=== PATIENT | male | born 1985 | race Caucasian/White ===

== ENCOUNTER 2016-09-10 13:37 | Emergency (ER) | payer OTHER ==
[2016-09-10 13:44] VITALS: RESP 18; O2SAT 99; BMI 21.5
[2016-09-10 14:23] VITALS: TEMP 97.9
--- NOTE | 2016-09-10 14:37 | ED PDOC ---
Arrival/HPI - General Time Seen by Provider: 09/10/16 13:45 Historian: Patient - History of Present Illness Narrative History of Present Illness (Text): 09/10/16 14:24 Reymundo Mayorga is a 30 year old male who presents to the emergency department complaining progressive bilateral numbness (left greater than right) with associated headache for about a week. At different times, patient experiences abnormal correctional agency director, vision change, and mild headache. Patient states that he saw a neurologist, Dr. Dong, a few days ago and received a Brain MRI which had normal results. Patient also states that he experienced chest pain a few days ago and went to [place] for an evaluation. His paper work from [facility] shows unremarkable blood work. He also says he was diagnosed with mono several weeks ago. Patient denies any fever, chills, or any other complaint at this time. Patient notes that he traveled to [place] [facility] 3 weeks ago. He has also had diarrhea for several weeks, starting prior to going [place]. Time/Duration: 1 week Symptom Onset: Gradual Symptom Course: Unchanged Activities at Onset: Rest Context: Home Past Medical History - Provider Review Nursing Documentation Reviewed: Yes - Travel History Have you recently traveled outside [place] w/in the past 3 mons?: Yes If Yes, travel location?: [facility] - Infectious Disease Hx of Infectious Diseases: None - Genitourinary/Gynecological Other/Comment: mono - Psychiatric Hx Substance Use: No - Anesthesia Hx Anesthesia: No Hx Anesthesia Reactions: No Hx Malignant Hyperthermia: No Family/Social History - Physician Review Nursing Documentation Reviewed: Yes Family/Social History: No Known Family HX Smoking Status: Never Smoked Hx Alcohol Use: No Hx Substance Use: No Allergies/Home Meds Allergies/Adverse Reactions: Allergies No Known Allergies Allergy (Unverified 09/10/16 14:24) Home Medications: Home Meds Medication Instructions Recorded Confirmed Acyclovir [Zovirax] 800 mg PO TID 09/10/16 09/10/16 Review of Systems - Physician Review All systems were reviewed & negative as marked: Yes - Review of Systems Constitutional: Other (Progressive bilateral numbness (left worse than right)) Eyes: Vision Changes ENT: absent: Hearing Changes Respiratory: absent: SOB Cardiovascular: absent: Chest Pain Gastrointestinal: absent: Abdominal Pain Genitourinary Male: absent: Dysuria, Urinary Output Changes Musculoskeletal: absent: Arthralgias Skin: absent: Rash Neurological: Headache Endocrine: absent: Diaphoresis Hemo/Lymphatic: absent: Adenopathy Psychiatric: absent: Anxiety Physical Exam Vital Signs Reviewed: Yes Vital Signs Temp Pulse Resp BP Pulse Ox 09/10/16 17:24 64 18 121/63 99 09/10/16 16:15 66 18 122/65 99 09/10/16 15:23 69 18 124/69 99 09/10/16 14:23 97.9 F 75 18 126/72 99 09/10/16 13:43 98.2 F 80 18 105/78 99 Temperature: Afebrile Blood Pressure: Normal Pulse: Regular Respiratory Rate: Normal Appearance: Positive for: Well-Appearing, Non-Toxic, Comfortable Pain Distress: None Mental Status: Positive for: Alert and Oriented X 3 - Systems Exam Head: Present: Atraumatic, Normocephalic Pupils: Present: PERRL Extroacular Muscles: Present: EOMI Conjunctiva: Present: Normal Mouth: Present: Moist Mucous Membranes Pharnyx: Present: Normal. No: ERYTHEMA, EXUDATE Neck: Present: Normal Range of Motion Respiratory/Chest: Present: Clear to Auscultation, Good Air Exchange. No: Respiratory Distress, Accessory Muscle Use Cardiovascular: Present: Regular Rate and Rhythm, Normal S1, S2. No: Murmurs Abdomen: Present: Normal Bowel Sounds. No: Tenderness, Distention, Peritoneal Signs Back: Present: Normal Inspection Upper Extremity: Present: Normal Inspection. No: Cyanosis, Edema Lower Extremity: Present: Normal Inspection. No: Edema Neurological: Present: GCS=15, CN II-XII Intact, Speech Normal Skin: Present: Warm, Dry, Normal Color. No: Rashes Psychiatric: Present: Alert, Oriented x 3, Normal Insight, Normal Concentration Medical Decision Making ED Course and Treatment: 09/10/16 14:24 Impression: 30 year old male complaining of progressive bilateral numbness (left greater than right) with associated headache for about a week. Differential Diagnosis included but are not limited to: MS vs GBS vs CVA Plan: -- EKG -- Chest X-ray -- Brain CT w/o contrast -- Labs -- Reassess and disposition Progress Notes: 09/10/16 14:30 EKG: NSR @ 75 with inverted T waves in I, avL with normal intervals, left post fascicular block. Case discussed with Dr. Dong, who said that patient had a negative Brain MRI and normal nerve conductions studies and normal EMGs done. Patient does not require any additional neurological workup. 09/10/16 17:33 Labs are unremarkable and CT brain is negative. 09/10/16 18:08 Patient with no acute findings here with normal exam. He already had the negative studies outpatient, so unlikely to be GBS. Given negative workup, will have patient follow up outpatient with neurology. Also to consider will be to stop acyclovir, which he has been taking for mono. - Lab Interpretations Lab Results: 09/10/16 14:30 09/10/16 14:30 Lab Results 09/10/16 14:30: Sodium 140, Potassium 4.5, Chloride 100, Carbon Dioxide 29, Anion Gap 16, BUN 10, Creatinine 0.8, Est GFR ( Amer) > 60, Est GFR (Non- Af Amer) > 60, Random Glucose 81, Calcium 9.9, Magnesium 2.2, Total Bilirubin 0.4, AST 20, ALT 31, Alkaline Phosphatase 48, Lactate Dehydrogenase 372, Total Creatine Kinase 80, Troponin I < 0.01, Total Protein 7.5, Albumin 4.6, Globulin 3.0, Albumin/Globulin Ratio 1.5 09/10/16 14:30: WBC 7.4, RBC 5.09, Hgb 15.4, Hct 43.6, MCV 85.7, MCH 30.3, MCHC 35.3, RDW 12.6, Plt Count 231, MPV 10.2, Gran % 51.0, Lymph % (Auto) 34.7, [place] % (Auto) 10.7 H, Eos % (Auto) 3.3, Baso % (Auto) 0.3, Gran # 3.77, Lymph # 2.6, [place] # 0.8 H, Eos # 0.2, Baso # 0.02 - RAD Interpretation Radiology Orders: 09/10/16 14:28 Brain [HEAD W/O CONTRAST] [CT] Stat - Scribe Statement The provider has reviewed the documentation as recorded by the Xochitlibalicia Chan Provider Scribe Attestation: All medical record entries made by the Scribe were at my direction and personally dictated by me. I have reviewed the chart and agree that the record accurately reflects my personal performance of the history, physical exam, medical decision making, and the department course for this patient. I have also personally directed, reviewed, and agree with the discharge instructions and disposition. Disposition/Present on Arrival - Present on Arrival Any Indicators Present on Arrival: No History of DVT/PE: No History of Uncontrolled Diabetes: No Urinary Catheter: No History of Decub. Ulcer: No History Surgical Site Infection Following: None - Disposition Have Diagnosis and Disposition been Completed?: Yes Diagnosis: Paresthesia Disposition: HOME/ ROUTINE Disposition Time: 18:10 Patient Plan: Discharge Condition: GOOD Additional Instructions: Follow up with Dr. Dong. Recommending stopping acyclovir at this time. Follow up with gastroenterology. You may use imodium AD for diarrhea. Return to the emergency department if any new concerning symptoms. Referrals: Alfonso Yo DO [Primary Care Provider] - Follow up with primary Last Dong MD [Staff Provider] - Follow up with primary
[2016-09-10 14:44] LABS: BASO # 0.02 K/mm3 (0.0-2.0); BASO % 0.3 % (0.0-3.0); EOS # 0.2 (0.0-0.7); EOS % 3.3 % (1.5-5.0); GRAN # 3.77 (1.4-6.5); HEMOGLOBIN 15.4 gm/dL (14.0-18.0); LYMPH # 2.6 (1.2-3.4); LYMPH % 34.7 % (22.0-35.0); MEAN CELL VOLUME 85.7 fL (80.0-105.0); MEAN CORPUSCULAR HEMOGLOBIN 30.3 pg (25.0-35.0); MEAN CORPUSCULAR HGB CONC 35.3 g/dl (31.0-37.0); MEAN PLATELET VOLUME 10.2 fl (7.0-11.0); MONO # 0.8 (0.1-0.6); MONO % 10.7 % (1.0-6.0); PLATELET COUNT 231 10^3/uL (120.0-450.0); RBC 5.09 10^6/uL (3.5-6.1); RED CELL DISTRIBUTION WIDTH 12.6 % (11.5-14.5); WHITE BLOOD COUNT 7.4 10^3/ul (4.5-11.0)
[2016-09-10 15:00] LABS: ALB/GLOB RATIO 1.5 (1.1-1.8); ALBUMIN 4.6 g/dL (3.0-4.8); ALT/SGPT 31 U/L (7-56); AST/SGOT 20 U/L (15-59); BLOOD UREA NITROGEN 10 mg/dL (7-21); CALCIUM 9.9 mg/dL (8.4-10.5); GFR AFRICAN-AMERICAN > 60; GFR NON-AFRICAN AMERICAN > 60; MAGNESIUM 2.2 mg/dL (1.7-2.2)
[2016-09-10 15:12] LABS: TROPONIN I < 0.01 ng/mL
--- NOTE | 2016-09-10 15:47 | CT ---
PROCEDURE: CT HEAD WITHOUT CONTRAST. HISTORY: L side numbness L > R COMPARISON: None available. TECHNIQUE: Axial computed tomography images were obtained through the head/brain without intravenous contrast. Radiation dose: Total exam DLP = 757 mGy-cm. This CT exam was performed using one or more of the following dose reduction techniques: Automated exposure control, adjustment of the mA and/or kV according to patient size, and/or use of iterative reconstruction technique. FINDINGS: HEMORRHAGE: No intracranial hemorrhage. BRAIN: No mass effect or edema. No atrophy or chronic microvascular ischemic changes. VENTRICLES: Unremarkable. No hydrocephalus. CALVARIUM: Unremarkable. PARANASAL SINUSES: Unremarkable as visualized. No significant inflammatory changes. MASTOID AIR CELLS: Unremarkable as visualized. No inflammatory changes. OTHER FINDINGS: None. IMPRESSION: No acute findings
[2016-09-10 17:25] VITALS: BP 121/63; PULSE 64
--- NOTE | 2016-09-10 20:49 | CARD ---
APPROVED REPORT EKG Measurement Heart [id number] MA 156P [id number] <Conclusion> Normal sinus rhythm Left posterior fascicular block vs reversed limb leads Abnormal ECG
== END 2016-09-10 18:26 | disposition home or self-care (01) ==
LOC: ED 13:37 → MERGE 13:37 → ED 18:26
DX: R20.9 Unspecified disturbances of skin sensation (principal)

== ENCOUNTER 2016-09-12 16:57 | Emergency (ER) | payer OTHER ==
[2016-09-12 17:06] VITALS: BP 117/76; PULSE 90; RESP 20; TEMP 99; O2SAT 97; BMI 24.0
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
== END 2016-09-12 18:15 | disposition home or self-care (01) ==
LOC: ED 16:57
DX: R20.9 Unspecified disturbances of skin sensation (principal)

== ENCOUNTER 2016-09-12 19:23 | Emergency (ER) | payer OTHER ==
[2016-09-12 19:36] VITALS: BMI 24.3
[2016-09-12 19:42] VITALS: RESP 18; TEMP 98
--- NOTE | 2016-09-12 19:48 | ED PDOC ---
Arrival/HPI <Nicolás Weinstein - Last Filed: 09/12/16 20:19> - General Historian: Patient <Oswaldo Barreto - Last Filed: 09/12/16 22:01> - General Chief Complaint: Medical Clearance Time Seen by Provider: 09/12/16 19:34 - History of Present Illness Narrative History of Present Illness (Text): 09/12/16 19:41 30 y/o male, pmh including parasthesia, nkda, c/o epigastric pain and rt. calf pain x 3 weeks. Epigastric pain on and off, making him feels anxious on and off , also started to have the rt. calf pain, no chest pain or shortness of breath, no palpitation, no night sweat, no other medical or psychological complaints. ( Oswaldo Barreto) Past Medical History - Provider Review Nursing Documentation Reviewed: Yes - Infectious Disease Hx of Infectious Diseases: None - Cardiac Hx Hypertension: No - Pulmonary Hx Tuberculosis: No - Neurological Hx Seizures: No - Endocrine/Metabolic Other/Comment: pt. states weight loss unknown cause - Hematological/Oncological Hx Cancer: No - Integumentary Hx Dermatological Disorder: Yes Other/Comment: big toe, small cuts pt. states not healing - Genitourinary/Gynecological Other/Comment: flank pain bilateral - Psychiatric Hx Psychophysiologic Disorder: No Hx Substance Use: No - Anesthesia Hx Anesthesia: No Hx Anesthesia Reactions: No Hx Malignant Hyperthermia: No <Oswaldo Barreto - Last Filed: 09/12/16 22:01> Family/Social History - Physician Review Nursing Documentation Reviewed: Yes Family/Social History: Unknown Family HX Smoking Status: Never Smoked Hx Alcohol Use: No Hx Substance Use: No <Oswaldo Barreto - Last Filed: 09/12/16 22:01> Allergies/Home Meds <Nicolás Weinstein - Last Filed: 09/12/16 20:19> <Oswaldo Barreto - Last Filed: 09/12/16 22:01> Allergies/Adverse Reactions: Allergies No Known Allergies Allergy (Verified 09/12/16 17:06) Review of Systems - Review of Systems Constitutional: absent: Fatigue, Fevers Eyes: absent: Vision Changes ENT: absent: Hearing Changes Respiratory: absent: SOB, Cough Cardiovascular: absent: Chest Pain Gastrointestinal: Abdominal Pain. absent: Diarrhea, Nausea, Vomiting Musculoskeletal: Arthralgias, Myalgias. absent: Back Pain, Neck Pain, Joint Swelling Skin: absent: Rash, Pruritis, Skin Lesions <Oswaldo Barreto - Last Filed: 09/12/16 22:01> Physical Exam Vital Signs Reviewed: Yes Temperature: Afebrile Blood Pressure: Normal Pulse: Regular Respiratory Rate: Normal Appearance: Positive for: Well-Appearing, Non-Toxic, Comfortable Pain Distress: Mild Mental Status: Positive for: Alert and Oriented X 3 - Systems Exam Head: Present: Atraumatic, Normocephalic Pupils: Present: PERRL Extroacular Muscles: Present: EOMI Conjunctiva: Present: Normal Mouth: Present: Moist Mucous Membranes Neck: Present: Normal Range of Motion Respiratory/Chest: Present: Clear to Auscultation, Good Air Exchange. No: Respiratory Distress, Accessory Muscle Use Cardiovascular: Present: Regular Rate and Rhythm, Normal S1, S2. No: Murmurs Abdomen: Present: Tenderness (+mild epigastric tenderness), Normal Bowel Sounds. No: Distention, Peritoneal Signs, Rebound, Guarding Back: Present: Normal Inspection Upper Extremity: Present: Normal Inspection. No: Cyanosis, Edema Lower Extremity: Present: Normal Inspection, NORMAL PULSES, Normal ROM, Neurovascularly Intact, Capillary Refill < 2 s, Other. No: Edema, Deformity Neurological: Present: GCS=15, Speech Normal, Motor Func Grossly Intact, Gait Normal, Memory Normal Skin: Present: Warm, Dry, Normal Color. No: Rashes Psychiatric: Present: Alert, Oriented x 3, Normal Insight, Normal Concentration <Oswaldo Barreto - Last Filed: 09/12/16 22:01> Vital Signs Temp Pulse Resp BP Pulse Ox 09/12/16 19:41 98.0 F 79 18 113/73 97 Medical Decision Making <Nicolás Weinstein - Last Filed: 09/12/16 20:19> - Lab Interpretations I have reviewed the lab results: Yes Interpretation: No clinic. lab abnormalty - RAD Interpretation Manager Of Merchandising: Radiologist <Oswaldo Barreto - Last Filed: 09/12/16 22:01> ED Course and Treatment: 09/12/16 19:49 -labs -sonograms -pepcid -observe and reassess 09/12/16 21:59 -Labs are nonsignificant -Ddimer within normal limit -RLE Venuous doppler: as preliminary report, no acute DVT -Gall bladder sonogram: show no acute findings. -Pt. feels well and better, have long detail discussion with the patient. -Discharge home with pepcid, stay hydrated, bed rest, follow up with your own pmd and GI/neurologist within2 days, return to the ER for any new or worsening signs or symptoms. (Oswaldo Barreto) - Lab Interpretations Lab Results: 09/12/16 08:35 09/12/16 08:35 Lab Results 09/12/16 08:35: D-Dimer, Quantitative 0.19 09/12/16 08:35: Sodium 141, Potassium 3.6, Chloride 99, Carbon Dioxide 29, Anion Gap 17, BUN 14, Creatinine 0.8, Est GFR ( Amer) > 60, Est GFR (Non- Af Amer) > 60, Random Glucose 77, Calcium 9.5, Total Bilirubin 0.5, AST 25, ALT 35, Alkaline Phosphatase 47, Total Protein 7.9, Albumin 4.6, Globulin 3.3, Albumin/Globulin Ratio 1.4, Lipase 154 09/12/16 08:35: WBC 9.7 D, RBC 5.17, Hgb 15.8, Hct 44.6, MCV 86.3, MCH 30.6, MCHC 35.4, RDW 12.4, Plt Count 235, MPV 10.3, Gran % 54.5, Lymph % (Auto) 32.1, [place] % (Auto) 8.2 H, Eos % (Auto) 4.9, Baso % (Auto) 0.3, Gran # 5.28, Lymph # 3.1, [place] # 0.8 H, Eos # 0.5, Baso # 0.03 - RAD Interpretation Radiology Orders: 09/12/16 19:47 GALL BLADDER [US] Stat 09/12/16 19:48 DUPLEX LOWER EXTRM VEIN RIGHT [US] Stat 09/12/16 19:47 GALL BLADDER [US] Stat 09/12/16 19:48 DUPLEX LOWER EXTRM VEIN RIGHT [US] Stat RLE Venuous doppler: as preliminary report, no acute DVT Gall bladder sonogram: FINDINGS: Liver: Measured at 18.4 cm. No mass imaged. No intrahepatic bile duct dilation. Gallbladder: Unremarkable as visualized. No gallstones. Common bile duct: No dilation, measured at 5 mm. Pancreas: Not visualized due to bowel gas. Right kidney: Measured at 11.2 cm. No hydronephrosis. IMPRESSION: No acute sonographic abnormality. Details as above. Correlate clinically. Followup as warranted. Thank you for allowing us to participate in the care of your patient. Dictated and Authenticated by: Desiree Schuler MD 09/12/2016 9:50 PM Eastern Time ([place] & [place]) (Oswaldo Barreto) - Medication Orders Current Medication Orders: Discontinued Medications Famotidine (Pepcid) 20 mg PO STAT STA Stop: 09/12/16 19:48 Last Admin: 09/12/16 20:32 Dose: Not Given Non-Admin Reason: Patient Refused - PA / [employer] WORKERS SUPERVISOR / Resident Statement HERLINDA has reviewed & agrees with the documentation as recorded. <Nicolás Weinstein - Last Filed: 09/12/16 20:19> - PA / C[employer]ET[employer] WORKERS SUPERVISOR / Resident Statement HERLINDA has reviewed & agrees with the documentation as recorded. <Oswaldo Barreto - Last Filed: 09/12/16 22:01> Disposition/Present on Arrival <Nicolás Weinstein - Last Filed: 09/12/16 20:19> - Present on Arrival Any Indicators Present on Arrival: No History of DVT/PE: No History of Uncontrolled Diabetes: No Urinary Catheter: No History of Decub. Ulcer: No History Surgical Site Infection Following: None - Disposition Have Diagnosis and Disposition been Completed?: Yes Disposition Time: 22:00 Patient Plan: Discharge <Oswaldo Barreto - Last Filed: 09/12/16 22:01> - Disposition Diagnosis: Gastritis Disposition: HOME/ ROUTINE Condition: GOOD Additional Instructions: -Discharge home with pepcid, stay hydrated, bed rest, follow up with your own pmd and GI/neurologist within2 days, return to the ER for any new or worsening signs or symptoms. Prescriptions: Famotidine [Pepcid] 20 mg PO BID #14 tab Referrals: Aflonso Yo DO [Primary Care Provider] - Follow up with primary Myah Calderón MD [Medical Doctor] - Follow up with primary Last Dong MD [Staff Provider] - Follow up with primary Forms: [employer] (Arabic), WORK NOTE
[2016-09-12 20:48] LABS: BASO # 0.03 K/mm3 (0.0-2.0); BASO % 0.3 % (0.0-3.0); EOS # 0.5 (0.0-0.7); EOS % 4.9 % (1.5-5.0); GRAN # 5.28 (1.4-6.5); GRAN % 54.5 % (50.0-68.0); HEMOGLOBIN 15.8 gm/dL (14.0-18.0); LYMPH # 3.1 (1.2-3.4); LYMPH % 32.1 % (22.0-35.0); MEAN CELL VOLUME 86.3 fL (80.0-105.0); MEAN CORPUSCULAR HEMOGLOBIN 30.6 pg (25.0-35.0); MEAN CORPUSCULAR HGB CONC 35.4 g/dl (31.0-37.0); MEAN PLATELET VOLUME 10.3 fl (7.0-11.0); MONO # 0.8 (0.1-0.6); MONO % 8.2 % (1.0-6.0); PLATELET COUNT 235 10^3/uL (120.0-450.0); RBC 5.17 10^6/uL (3.5-6.1); RED CELL DISTRIBUTION WIDTH 12.4 % (11.5-14.5); WHITE BLOOD COUNT 9.7 10^3/ul (4.5-11.0)
[2016-09-12 20:55] LABS: ALB/GLOB RATIO 1.4 (1.1-1.8); ALBUMIN 4.6 g/dL (3.0-4.8); ALT/SGPT 35 U/L (7-56); AST/SGOT 25 U/L (15-59); BLOOD UREA NITROGEN 14 mg/dL (7-21); CALCIUM 9.5 mg/dL (8.4-10.5); GFR AFRICAN-AMERICAN > 60; GFR NON-AFRICAN AMERICAN > 60; LIPASE 154 U/L (23-300)
--- NOTE | 2016-09-12 21:50 | US ---
EXAM: US Abdomen Limited, Right Upper Quadrant CLINICAL HISTORY: 30 years old, male; Pain; Abdominal pain; Epigastric; Additional info: Epigastric pain TECHNIQUE: Real-time ultrasound of the right upper quadrant with image documentation. COMPARISON: No relevant prior studies available. FINDINGS: Liver: Measured at 18.4 cm. No mass imaged. No intrahepatic bile duct dilation. Gallbladder: Unremarkable as visualized. No gallstones. Common bile duct: No dilation, measured at 5 mm. Pancreas: Not visualized due to bowel gas. Right kidney: Measured at 11.2 cm. No hydronephrosis. IMPRESSION: No acute sonographic abnormality. Details as above. Correlate clinically. Followup as warranted.
[2016-09-12 22:35] VITALS: BP 123/82; PULSE 72; O2SAT 98
--- NOTE | 2016-09-14 15:51 | US ---
PROCEDURE: Right lower extremity venous US HISTORY: Leg pain and swelling. Evaluate for DVT. PHYSICIAN(S): Levar Redd M.D. TECHNIQUE: Duplex sonography and color-flow Doppler with graded compression were used to evaluate the deep venous system of the right lower extremity. FINDINGS: The visualized deep venous system of the right lower extremity is sonographically normal and compressible. Normal waveforms and augmentation are seen. There is no sonographic evidence for deep venous thrombosis in the visualized segments of the right lower extremity. IMPRESSION: 1. No sonographic evidence for deep venous thrombosis in the visualized segments of the right lower extremity.
== END 2016-09-12 22:35 | disposition home or self-care (01) ==
LOC: ED 19:23
DX: K29.70 Gastritis, unspecified, without bleeding (principal)

== ENCOUNTER 2016-09-30 10:28 | Emergency (ER) | payer OTHER ==
[2016-09-30 10:28] VITALS: BMI 24.3
[2016-09-30 10:38] VITALS: PULSE 76
--- NOTE | 2016-09-30 12:32 | ED PDOC ---
Arrival/HPI - General Chief Complaint: Headache Time Seen by Provider: 09/30/16 10:56 Historian: Patient - History of Present Illness Narrative History of Present Illness (Text): 09/30/16 12:00 Reymundo Osorio is a 31 year old male, whose past medical history includes mono, presents to the Emergency department complaining of headache and pain around the eyes since this morning. Patient reports that two days ago he had a spinal tap in [place], [place] in order to r/o multiple sclerosis. He notes not taking any pain medication for the current pain. Patient has also had several CT and MRI scans done due to a tingling sensation on his legs, but there were no significant results found. In addition, patient reports having decrease sensation in right leg compared to left leg. Patient denies chest pain, shortness of breath, fever, chills, cough, nausea, vomiting, diarrhea, abdominal pain, dizziness or other complaints. PMD: Dr. Yo Time/Duration: 4-6 hours Symptom Onset: Sudden Symptom Course: Unchanged Severity Level: 7 Activities at Onset: Light Modifying Factors (Text): None Associated Symptoms (Text): decreased sensation in right leg and pain around eye Past Medical History - Provider Review Nursing Documentation Reviewed: Yes - Infectious Disease Hx of Infectious Diseases: None - Cardiac Hx Cardiac Disorders: No Hx Hypertension: No - Pulmonary Hx Respiratory Disorders: No Hx Tuberculosis: No - Neurological Hx Neurological Disorder: No Hx Seizures: No - HEENT Hx HEENT Disorder: No - Renal Hx Renal Disorder: No - Endocrine/Metabolic Hx Endocrine Disorders: No Other/Comment: pt. states weight loss unknown cause - Hematological/Oncological Hx Blood Disorders: No - Integumentary Hx Dermatological Disorder: No - Musculoskeletal/Rheumatological Hx Musculoskeletal Disorders: No - Gastrointestinal Hx Gastrointestinal Disorders: No - Genitourinary/Gynecological Hx Genitourinary Disorders: No Hx Sexually Transmitted Diseases: No - Psychiatric Hx Psychophysiologic Disorder: No Hx Substance Use: No - Anesthesia Hx Anesthesia: No Hx Anesthesia Reactions: No Hx Malignant Hyperthermia: No Family/Social History - Physician Review Nursing Documentation Reviewed: Yes Family/Social History: CAD/AK (CAD) Smoking Status: Never Smoked Hx Alcohol Use: No Hx Substance Use: No Allergies/Home Meds Allergies/Adverse Reactions: Allergies No Known Allergies Allergy (Verified 09/30/16 10:36) Review of Systems - Review of Systems Constitutional: absent: Fevers Eyes: absent: Vision Changes ENT: absent: Epistaxis Respiratory: absent: SOB Cardiovascular: absent: Chest Pain Gastrointestinal: absent: Abdominal Pain Genitourinary Male: absent: Dysuria Musculoskeletal: absent: Back Pain Neurological: Headache, Other (decreased sensation in right leg) Endocrine: absent: Diaphoresis Hemo/Lymphatic: absent: Easy Bleeding Psychiatric: absent: Anxiety Physical Exam Vital Signs Reviewed: Yes Vital Signs Temp Pulse Resp BP Pulse Ox 09/30/16 10:37 98.4 F 76 20 136/79 100 Temperature: Afebrile Blood Pressure: Normal Pulse: Regular Respiratory Rate: Normal Appearance: Positive for: Well-Appearing, Non-Toxic, Comfortable Pain Distress: None Mental Status: Positive for: Alert and Oriented X 3 - Systems Exam Head: Present: Atraumatic, Normocephalic Pupils: Present: PERRL Extroacular Muscles: Present: EOMI Conjunctiva: Present: Normal Mouth: Present: Moist Mucous Membranes Neck: Present: Normal Range of Motion Respiratory/Chest: Present: Clear to Auscultation, Good Air Exchange. No: Respiratory Distress, Accessory Muscle Use Cardiovascular: Present: Regular Rate and Rhythm, Normal S1, S2. No: Murmurs Abdomen: Present: Normal Bowel Sounds. No: Tenderness, Distention, Peritoneal Signs Upper Extremity: Present: Normal Inspection. No: Cyanosis, Edema Lower Extremity: Present: Normal Inspection. No: Edema Neurological: Present: GCS=15, CN II-XII Intact, Speech Normal, Motor Func Grossly Intact, Normal Sensory Function Skin: Present: Warm, Dry, Normal Color. No: Rashes Psychiatric: Present: Alert, Oriented x 3, Normal Insight, Normal Concentration Medical Decision Making ED Course and Treatment: 09/30/16 12:20 Impression: 31 year old male with headache and decreased right leg sensation. Plan: -- Motrin, Reglan, and Tylenol -- Reassess and disposition Progress Notes: Reevaluation: On reevaluation the patient feels better after taking Motrin and Tylenol and is in no acute distress. I have discussed the results and plan with the patient, who expresses understanding. Patient given the opportunity to ask question, all questions were answered and there is agreement with the plan to discharge. Patient is stable for discharge. Patient was instructed to follow up with physician/clinic in 1-2 days or return if symptoms persist/worsen or new concerning symptoms arise. - Medication Orders Current Medication Orders: Discontinued Medications Acetaminophen (Tylenol 325mg Tab) 975 mg PO STAT STA Stop: 09/30/16 11:08 Last Admin: 09/30/16 11:16 Dose: 975 mg Ibuprofen (Motrin Tab) 600 mg PO STAT STA Stop: 09/30/16 11:09 Last Admin: 09/30/16 11:17 Dose: 600 mg Metoclopramide HCl (Reglan) 10 mg PO STAT STA Stop: 09/30/16 11:08 Last Admin: 09/30/16 11:17 Dose: 10 mg - Scribe Statement The provider has reviewed the documentation as recorded by the Scribe 09/30/2016 Maci Felton Provider Scribe Attestation: All medical record entries made by the Scribe were at my direction and personally dictated by me. I have reviewed the chart and agree that the record accurately reflects my personal performance of the history, physical exam, medical decision making, and the department course for this patient. I have also personally directed, reviewed, and agree with the discharge instructions and disposition. Disposition/Present on Arrival - Present on Arrival Any Indicators Present on Arrival: No History of DVT/PE: No History of Uncontrolled Diabetes: No Urinary Catheter: No History of Decub. Ulcer: No History Surgical Site Infection Following: None - Disposition Have Diagnosis and Disposition been Completed?: Yes Diagnosis: Headache, Headache around the eyes Disposition: HOME/ ROUTINE Disposition Time: 12:29 Patient Plan: Discharge Patient Problems: Current Active Problems Problem Status Onset Headache Acute Headache around the eyes Acute Condition: IMPROVED Discharge Instructions (ExitCare): General Headache (ED) Print Language: SYRIAC Additional Instructions: Mr. Robertson, thank you for letting us take care of you today. Return to the ER if your symptoms worsen, or if any problems. I did speak to the eye doctor (shale processing technician) Dr. Baron and he can see you tomorrow in his office. If this timing does not work, I have listed other ophthalmologists below that you can call. Please also follow up with the doctors at [facility] to get the results of your spinal tap. If your headache still persists, they can apply a "blood patch" to help further relieve the headaches. Also follow up with Dr. Yo. Take the medication listed below as prescribed. Prescriptions: Ibuprofen [Motrin] 1 tab PO Q8 PRN #30 tab PRN Reason: Headache Metoclopramide [Reglan] 1 tab PO TID PRN #12 tab PRN Reason: Headache Referrals: Alfonso Yo DO [Primary Care Provider] - Follow up with primary Wallace Baron MD [Staff Provider] - Follow up with primary Agustin Suarez MD [Staff Provider] - Follow up with primary Eliazar Fry MD [Staff Provider] - Follow up with primary
[2016-09-30 13:14] VITALS: BP 118/74; RESP 16; TEMP 98.6; O2SAT 99
== END 2016-09-30 13:16 | disposition home or self-care (01) ==
LOC: ED 10:28
DX: R51 Headache (principal)